=== PATIENT | male | born 1970 | race Caucasian/White ===

== ENCOUNTER 2020-05-05 14:39 | Emergency (ER) | payer MEDICARE, MEDICAID ==
[~2020-05-05] VITALS: Ht 175.3 cm; Wt 88.0 kg
[2020-05-05] MEDS ORDERED: SODIUM CHLORIDE 0.9% 1,000 ML IV ONE ×2 (15:05→16:30)
[2020-05-05] MEDS ORDERED: CEFTRIAXONE 1 G PREMIX 50 ML IV ONE (15:15)
[2020-05-05 15:51] LABS: BASOPHILS % 1.1 % (0.0-2.0); EOSINOPHILS % 7.2 % (0.0-5.0); HEMOGLOBIN. 9.7 g/dL (14.0-18.0); LYMPHOCYTES % 18.4 % (20.0-50.0); MEAN CORPUSCULAR HEMOGLOBIN 28.7 pg (28.0-32.0); MEAN CORPUSCULAR VOLUME 86.3 fL (80.0-94.0); MEAN PLATELET VOLUME 6.4 fl (7.4-10.4); MONOCYTES % 11.3 % (2.0-8.0); PLATELET 273 x1000/uL (130-400); RED BLOOD CELL COUNT 3.37 mill/uL (4.7-6.1); RED CELL DISTRIBUTION WIDTH 14.1 % (11.6-14.6)
[2020-05-05 15:54] LABS: CHLORIDE 104 mEq/L (98-107)
[2020-05-05 17:15] VITALS: BP 122/88
== END 2020-05-05 17:50 | disposition home or self-care (01) ==
LOC: ER 14:53
DX: I95.89 Other hypotension (principal); N30.90 Cystitis, unspecified without hematuria; G82.50 Quadriplegia, unspecified; Z74.01 Bed confinement status; Z98.890 Other specified postprocedural states
CPT/HCPCS: 36415; 80053; 83605; 85025; 87040; 93005; 96365; 99284; J0696; J7030

== ENCOUNTER 2020-10-23 19:46 | Inpatient (IN) | payer MEDICARE, MEDICAID ==
[~2020-10-23] VITALS: Ht 175.3 cm; Wt 90.7 kg
[2020-10-23] MEDS ORDERED: VANCOMYCIN 1 G PREMIX 200 ML IV ONE (20:45)
[2020-10-23] MEDS ORDERED: SODIUM CHLORIDE 0.9% 1000ML BAG (SEPSIS BOLUS) IV ONE (20:45)
[2020-10-23 21:07] LABS: HEMATOCRIT. 32.2 % (42.0-52.0); HEMOGLOBIN. 10.4 g/dL (14.0-18.0); MEAN CORPUSCULAR HEMOGLOBIN 27.5 pg (28.0-32.0); MEAN CORPUSCULAR VOLUME 85.2 fL (80.0-94.0); MEAN PLATELET VOLUME 6.6 fl (7.4-10.4); PLATELET 276 x1000/uL (130-400); RED BLOOD CELL COUNT 3.78 mill/uL (4.7-6.1); RED CELL DISTRIBUTION WIDTH 15.3 % (11.6-14.6)
[2020-10-23 21:12] LABS: CHLORIDE 105 mEq/L (98-107)
[2020-10-23 21:18] LABS: CLARITY URINE TURBID (CLEAR); COLOR URINE YELLOW (YELLOW); KETONES URINE NEGATIVE (NEGATIVE); LEUKOCYTE ESTERASE URINE 3+ (NEGATIVE); NITRITE URINE NEGATIVE (NEGATIVE); OCCULT BLOOD URINE TRACE (NEGATIVE); PROTEIN URINE 1+ (NEGATIVE); SPECIFIC GRAVITY URINE 1.012 (1.005-1.030)
[2020-10-23] MEDS ORDERED: PIPERACILLIN/TAZ 3.375G PREMIX 50 ML IV ONE (21:30)
[2020-10-23 21:47] LABS: PLATELET ESTIMATE NORMAL
[2020-10-23] MEDS ORDERED: GABAPENTIN SOLN 300MG/6ML UDC PO ONE (22:15)
[2020-10-23] MEDS: HYDROCODONE/ACETAMINOPHEN 5/325MG TABLET PO ONE ×2 (22:18→22:26)
[2020-10-24] VITALS (7 sets, daily range): BP systolic 100–175; BP diastolic 50–131
[2020-10-24] MEDS ORDERED: BISACODYL 5MG TABLET PO PRN (00:30)
[2020-10-24] MEDS ORDERED: SIMV-43 PO (00:33)
[2020-10-24] MEDS ORDERED: GABA800T97 PO (00:33)
[2020-10-24] MEDS ORDERED: LORA2ORA5 PO (00:33)
[2020-10-24] MEDS ORDERED: BISA-81 PO (00:33)
[2020-10-24] MEDS ORDERED: LEVO50TA8 PO (00:33)
[2020-10-24] MEDS ORDERED: BACL-141 PO (00:33)
[2020-10-24] MEDS: MORPHINE SULFATE 2 MG/ML CPJ (NOT FOR IM USE) IV PRN ×2 (01:17→05:16)
[2020-10-24] MEDS: LORAZEPAM 1MG TABLET PO PRN ×2 (01:27→22:19)
[2020-10-24] MEDS: ACETAMINOPHEN 325MG TABLET PO PRN (01:34)
[2020-10-24] MEDS ORDERED: VANCOMYCIN 1250MG in DEXTROSE 5% WATER 250ML IV SCH (05:00)
[2020-10-24] MEDS: BACLOFEN 10MG TABLET PO SCH ×3 (05:17→21:12)
[2020-10-24] MEDS: GABAPENTIN 300MG CAPSULE PO SCH ×4 (05:17→21:17)
[2020-10-24] MEDS ORDERED: PIPERACILLIN/TAZOBACTAM 3.375GM/50ML PREMIX IV SCH (06:00)
[2020-10-24] MEDS ORDERED: PIPERACILLIN/TAZOBACTAM 3.375 G in DEXT 5% WATER 100 ML IV SCH (06:00)
[2020-10-24 06:13] LABS: HEMOGLOBIN. 10.2 g/dL (14.0-18.0); MEAN CORPUSCULAR VOLUME 84.9 fL (80.0-94.0); MEAN PLATELET VOLUME 6.8 fl (7.4-10.4); PLATELET 256 x1000/uL (130-400); RED BLOOD CELL COUNT 3.65 mill/uL (4.7-6.1); RED CELL DISTRIBUTION WIDTH 15.1 % (11.6-14.6)
[2020-10-24 07:38] LABS: CHLORIDE 109 mEq/L (98-107)
[2020-10-24] MEDS ORDERED: HYDROCODONE/ACETAMINOPHEN 10/325MG TABLET PO PRN (08:15)
[2020-10-24] MEDS: LEVOTHYROXINE SODIUM 50MCG TABLET PO SCH (09:26)
[2020-10-24] MEDS: AMLODIPINE 10MG TABLET PO SCH (09:27)
[2020-10-24] MEDS: ENOXAPARIN 40MG/0.4ML SYR SUBCUT SCH (09:27)
[2020-10-24] MEDS: PIPERACILLIN/TAZOBACTAM 3.375 G in DEXT 5% WATER 100 ML IV SCH ×3 (12:00→22:20)
[2020-10-24 13:59] LABS: PLATELET ESTIMATE NORMAL
[2020-10-24] MEDS: HYDROCODONE/ACETAMINOPHEN 10/325MG TABLET PO PRN ×2 (15:18→22:53)
[2020-10-24] MEDS: DIPHENHYDRAMINE 25MG CAPSULE PO PRN (18:35)
[2020-10-24] MEDS ORDERED: ATORVASTATIN CALCIUM 20MG TABLET PO SCH (21:00)
[2020-10-25] VITALS: BP 97/56
[2020-10-25] MEDS: DIPHENHYDRAMINE 25MG CAPSULE PO PRN (00:58)
[2020-10-25] MEDS: ACETAMINOPHEN 325MG TABLET PO PRN (00:59)
[2020-10-25 04:00] VITALS: BP 128/76
[2020-10-25] MEDS: BACLOFEN 10MG TABLET PO SCH ×2 (06:08→14:20)
[2020-10-25] MEDS: HYDROCODONE/ACETAMINOPHEN 10/325MG TABLET PO PRN ×2 (06:11→10:13)
[2020-10-25] MEDS: LORAZEPAM 1MG TABLET PO PRN (06:34)
[2020-10-25 07:11] LABS: BASOPHILS % 0.5 % (0.0-2.0); HEMATOCRIT. 33.2 % (42.0-52.0); HEMOGLOBIN. 10.8 g/dL (14.0-18.0); LYMPHOCYTES % 9.4 % (20.0-50.0); MEAN CORPUSCULAR HEMOGLOBIN 27.5 pg (28.0-32.0); MEAN CORPUSCULAR VOLUME 84.6 fL (80.0-94.0); MEAN PLATELET VOLUME 6.8 fl (7.4-10.4); MONOCYTES % 6.5 % (2.0-8.0); NEUTROPHILS % 81.6 % (40.0-76.0); PLATELET 272 x1000/uL (130-400); RED BLOOD CELL COUNT 3.92 mill/uL (4.7-6.1); RED CELL DISTRIBUTION WIDTH 15.6 % (11.6-14.6)
[2020-10-25 07:17] LABS: CHLORIDE 110 mEq/L (98-107)
[2020-10-25 08:14] VITALS: BP 154/85
[2020-10-25] MEDS: LEVOTHYROXINE SODIUM 50MCG TABLET PO SCH (08:34)
[2020-10-25] MEDS: ENOXAPARIN 40MG/0.4ML SYR SUBCUT SCH (08:35)
[2020-10-25] MEDS: AMLODIPINE 10MG TABLET PO SCH (08:36)
[2020-10-25 12:11] VITALS: BP 129/70
[2020-10-25] MEDS ORDERED: MORPHINE SULFATE 2 MG/ML CPJ (NOT FOR IM USE) IV NR ×2 (12:45→13:00)
[2020-10-25] MEDS ORDERED: LEVO500T89 MT (13:15)
[2020-10-25] MEDS ORDERED: HYDR-4009 MT (13:15)
[2020-10-25] MEDS ORDERED: TRAMADOL 50MG TABLET PO PRN (14:00)
[2020-10-25] MEDS: GABAPENTIN 300MG CAPSULE PO SCH (14:20)
[2020-10-25] MEDS: PIPERACILLIN/TAZOBACTAM 3.375 G in DEXT 5% WATER 100 ML IV SCH (14:37)
[2020-10-25 16:00] VITALS: BP 126/78
[2020-10-25 16:04] VITALS: BP 126/78
== END 2020-10-25 17:45 | disposition home or self-care (01) | DRG 690 ==
LOC: ER 19:46 → EDBEDREQ 20:45 → 6WST 22:50 → EDBEDREQTM 22:56 → EDBEDREQ 22:56 → ENRESERV 23:30
PROVIDERS: ADMIT Internal Medicine; ATTEND Internal Medicine
DX: N39.0 Urinary tract infection, site not specified (principal); E87.1 Hypo-osmolality and hyponatremia; E44.0 Moderate protein-calorie malnutrition; E87.2 Acidosis; J98.11 Atelectasis; G82.20 Paraplegia, unspecified; E78.5 Hyperlipidemia, unspecified; E03.9 Hypothyroidism, unspecified; D64.9 Anemia, unspecified; I10 Essential (primary) hypertension; Z79.899 Other long term (current) drug therapy; Z74.01 Bed confinement status; Z88.1 Allergy status to other antibiotic agents; Z68.29 Body mass index [BMI] 29.0-29.9, adult
CPT/HCPCS: 36415; 71045; 80048; 80053; 81003; 83605; 84145; 84484; 85025; 93005; 96365; 99291; A4565; J1650; J2270; J2543; J3370; J7030; J7040; J7060; Q0163

== ENCOUNTER 2022-11-01 20:58 | Inpatient (IN) | payer MEDICARE, MEDICAID ==
[~2022-11-01] VITALS: Ht 175.3 cm; Wt 86.2 kg
[~2022-11-01 20:58] MED LIST: BACL-141 PO; BISA-81 PO; GABA800T97 PO; HYDR-4009 MT; LEVO-65 MT; LEVO50TA8 PO; LORA2ORA5 PO; SIMV-43 PO
[2022-11-01] MEDS ORDERED: SODIUM CHLORIDE 0.9% 1000ML BAG (SEPSIS BOLUS) IV ONE (21:45)
[2022-11-01 22:12] LABS: BASOPHILS % 0.9 % (0.0-2.0); EOSINOPHILS % 6.5 % (0.0-5.0); HEMOGLOBIN. 9.9 g/dL (14.0-18.0); LYMPHOCYTES % 27.5 % (20.0-50.0); MEAN CORPUSCULAR HEMOGLOBIN 27.6 pg (28.0-32.0); MEAN CORPUSCULAR VOLUME 83.5 fL (80.0-94.0); MEAN PLATELET VOLUME 6.9 fl (7.4-10.4); MONOCYTES % 6.9 % (2.0-8.0); NEUTROPHILS % 58.2 % (40.0-76.0); PLATELET 288 x1000/uL (130-400); RED BLOOD CELL COUNT 3.59 mill/uL (4.7-6.1); RED CELL DISTRIBUTION WIDTH 17.5 % (11.6-14.6)
[2022-11-01 22:16] LABS: CHLORIDE 108 mEq/L (98-107)
[2022-11-02] MEDS ORDERED: CEFTRIAXONE 1 G PREMIX 50 ML IV NR
[2022-11-02] MEDS ORDERED: MORPHINE SULFATE 4 MG/ML CPJ (NOT FOR IM USE) IV ONE
[2022-11-02 01:14] LABS: CLARITY URINE CLOUDY (CLEAR); COLOR URINE YELLOW (YELLOW); KETONES URINE NEGATIVE (NEGATIVE); LEUKOCYTE ESTERASE URINE 3+ (NEGATIVE); NITRITE URINE POSITIVE (NEGATIVE); OCCULT BLOOD URINE NEGATIVE (NEGATIVE); PROTEIN URINE TRACE (NEGATIVE); UROBILINOGEN URINE 0.2 E.U./dL (0.2-1.0)
[2022-11-02] MEDS ORDERED: ZOLPIDEM TARTRATE 5MG TABLET PO NR (03:30)
[2022-11-02] MEDS: HYDROCODONE/ACETAMINOPHEN 10/325MG TABLET PO PRN ×5 (04:00→20:29)
[2022-11-02 08:00] VITALS: BP 120/73
[2022-11-02] MEDS ORDERED: BACL-141 PO (08:46)
[2022-11-02] MEDS ORDERED: GABA800T97 PO (08:46)
[2022-11-02] MEDS ORDERED: LORA2ORA5 PO (08:46)
[2022-11-02] MEDS ORDERED: LEVO75TA7 PO (08:46)
[2022-11-02] MEDS ORDERED: SIMV10TA97 PO (08:46)
[2022-11-02] MEDS ORDERED: TRAM100T25 PO (08:46)
[2022-11-02] MEDS ORDERED: ACETAMINOPHEN 325MG TABLET PO PRN (09:30)
[2022-11-02] MEDS ORDERED: ONDANSETRON HCL 4MG/2ML INJ IV PRN (09:30)
[2022-11-02 11:48] VITALS: BP 120/73
[2022-11-02 12:00] VITALS: BP 132/73
[2022-11-02] MEDS: BACLOFEN 10MG TABLET PO SCH ×2 (13:43→21:12)
[2022-11-02] MEDS: GABAPENTIN 300MG CAPSULE PO SCH ×2 (13:43→21:12)
[2022-11-02 16:00] VITALS: BP 139/79
[2022-11-02] MEDS ORDERED: NALOXONE HCL 0.4MG/ML VIAL IV PRN (17:00)
[2022-11-02 20:00] VITALS: BP 156/91
[2022-11-02] MEDS ORDERED: ZOLPIDEM TARTRATE 5MG TABLET PO PRN (21:00)
[2022-11-02] MEDS ORDERED: CEFTRIAXONE 1,000 MG in DEXTROSE 5% WATER 50 ML IV SCH (22:00)
[2022-11-03] VITALS: BP 116/81
[2022-11-03] MEDS ORDERED: MORPHINE SULFATE 2 MG/ML CPJ (NOT FOR IM USE) IV NR
[2022-11-03 01:22] VITALS: BP 116/81
[2022-11-03 04:00] VITALS: BP 141/86
[2022-11-03] MEDS: HYDROCODONE/ACETAMINOPHEN 10/325MG TABLET PO PRN ×2 (04:24→09:24)
[2022-11-03] MEDS: GABAPENTIN 300MG CAPSULE PO SCH (06:04)
[2022-11-03] MEDS: BACLOFEN 10MG TABLET PO SCH (06:05)
[2022-11-03] MEDS ORDERED: LEVOTHYROXINE SODIUM 50MCG TABLET PO SCH (07:20)
[2022-11-03 08:00] VITALS: BP 143/86
[2022-11-03 09:24] VITALS: BP 128/78
== END 2022-11-03 12:03 | disposition left against medical advice (07) | DRG 73 ==
LOC: ER 20:58 → 6EST 11-02 01:42 → EDBEDREQTM 11-02 01:45 → EDBEDREQ 11-02 01:45 → EDBEDREQSVC 11-02 01:56 → ENRESERV 11-02 03:29
PROVIDERS: ADMIT Internal Medicine; ATTEND Internal Medicine
DX: G90.8 Other disorders of autonomic nervous system (principal); G82.50 Quadriplegia, unspecified; E44.1 Mild protein-calorie malnutrition; N39.0 Urinary tract infection, site not specified; R57.9 Shock, unspecified; D64.9 Anemia, unspecified; E03.9 Hypothyroidism, unspecified; E78.00 Pure hypercholesterolemia, unspecified; G89.29 Other chronic pain; Z53.29 Procedure and treatment not carried out because of patient's decision for other reasons; Z88.1 Allergy status to other antibiotic agents; Z68.28 Body mass index [BMI] 28.0-28.9, adult
CPT/HCPCS: 36415; 71045; 80053; 81003; 83605; 84443; 85025; 87186; 93005; 99285; A6261; J0696; J2270; J7030; J7060

== ENCOUNTER 2024-11-17 22:02 | Inpatient (IN) | payer MEDICARE, MEDICAID ==
[~2024-11-17] VITALS: Ht 327.7 cm; Wt 83.5 kg
[~2024-11-17 22:02] MED LIST changes: +LEVO75TA7 PO; +SIMV10TA97 PO; +TRAM100T25 PO
[2024-11-17] MEDS ORDERED: MIDODRINE HCL 5MG TABLET PO ONE (22:45)
[2024-11-17] MEDS: SODIUM CHLORIDE 0.9% 500 ML IV ONE (22:45)
[2024-11-17] MEDS: MIDODRINE HCL 5MG TABLET PO ONE (23:26)
[2024-11-17] MEDS: ONDANSETRON HCL 4MG/2ML INJ IV STA (23:27)
[2024-11-17 23:36] LABS: HEMATOCRIT. 33.2 % (42.0-52.0); HEMOGLOBIN. 10.9 g/dL (14.0-18.0); MEAN CORPUSCULAR HEMOGLOBIN 30.1 pg (28.0-32.0); MEAN CORPUSCULAR HGB CONC 32.7 g/dL (31.0-37.0); MEAN CORPUSCULAR VOLUME 92.2 fL (80.0-94.0); MEAN PLATELET VOLUME 7.2 fl (7.4-10.4); PLATELET 177 x1000/uL (130-400); RED CELL DISTRIBUTION WIDTH 14.2 % (11.6-14.6); WHITE BLOOD COUNT 11.1 x1000/uL (4.5-11.0)
[2024-11-17 23:41] LABS: CHLORIDE 90 mEq/L (98-107); POTASSIUM 3.6 mEq/L (3.5-5.1); SODIUM 121 mEq/L (136-145)
[2024-11-17 23:42] LABS: CALCIUM 7.7 mg/dL (8.7-10.4); CARBON DIOXIDE 17 mEq/L (21-32); DIFFERENTIAL COMMENT 1
[2024-11-17 23:43] LABS: INR 1.2; PROTHROMBIN TIME 12.5 sec (9.6-11.0)
[2024-11-17 23:47] LABS: CREATININE 1.9 mg/dL (0.6-1.3); GLUCOSE 126 mg/dL (70-105)
[2024-11-17 23:48] LABS: TROPONIN I HIGH SENSITIVITY 4 ng/L (3.0-53); UREA NITROGEN BLOOD 28 mg/dL (9-23)
[2024-11-17 23:49] LABS: ALANINE AMINOTRANSFERASE 17 IU/L (10-49); ALBUMIN 3.3 g/dL (3.2-4.8); ASPARTATE AMINOTRANSFERASE 37 IU/L (<34); BILIRUBIN DIRECT 0.1 mg/dL (<=3.0)
[2024-11-17 23:50] LABS: BILIRUBIN TOTAL 0.2 mg/dL (0.1-1.0); PROTEIN TOTAL 6.4 g/dL (6.0-8.3)
[2024-11-17 23:55] LABS: ETHANOL BLOOD < 10 mg/dL (<10)
[2024-11-18] VITALS (65 sets, daily range): BP systolic 62–167; BP diastolic 34–151; PULSE 75–99; RESP 0–36; TEMP 36.1–37.4; O2SAT 91–99
[2024-11-18 00:02] LABS: LACTIC ACID 2.4 mmol/L (0.4-2.0)
[2024-11-18] MEDS: SODIUM CHLORIDE 0.9% 500 ML IV ONE (00:15)
[2024-11-18] MEDS: VANCOMYCIN 1.5GM PMX (XELLIA) 300 ML IV NR (00:15)
[2024-11-18] MEDS: AZTREONAM 1 G in DEXTROSE 5% WATER 50 ML IV SCH (00:40)
[2024-11-18] MEDS ORDERED: NOREPINEPHRINE 8 MG in DEXT 5% WATER 242 ML IV PRN (00:45)
[2024-11-18] MEDS: NOREPINEPHRINE 8MG/250ML PMX 250 ML IV PRN (01:07)
[2024-11-18] MEDS: SODIUM CHLORIDE 0.9% 1,000 ML IV ONE ×2 (01:10→11:15)
[2024-11-18] MEDS ORDERED: PHENYLEPHRINE 100 MG in DEXT 5% WATER 240 ML IV PRN (02:45)
[2024-11-18] MEDS ORDERED: IPRATROPIUM/ALBUTEROL 0.5-3(2.5)MG/3ML NEB NEB PRN (02:45)
[2024-11-18] MEDS ORDERED: ONDANSETRON HCL 4MG/2ML INJ IV PRN (02:45)
[2024-11-18] MEDS ORDERED: GLUCAGON,HUMAN RECOMBINANT 1MG/VIAL IV PRN (03:15)
[2024-11-18] MEDS ORDERED: DOCUSATE SODIUM 100MG CAPSULE PO PRN (03:15)
[2024-11-18] MEDS ORDERED: GUAIFENESIN 200MG/10ML SUGAR FREE UDC PO PRN (03:15)
[2024-11-18] MEDS ORDERED: CLONIDINE 0.1MG TABLET PO PRN (03:15)
[2024-11-18 03:26] LABS: CLARITY URINE TURBID (CLEAR); COLOR URINE YELLOW (YELLOW); GLUCOSE URINE NEGATIVE (NEGATIVE); KETONES URINE NEGATIVE (NEGATIVE); LEUKOCYTE ESTERASE URINE 3+ (NEGATIVE); NITRITE URINE NEGATIVE (NEGATIVE); OCCULT BLOOD URINE 1+ (NEGATIVE); PROTEIN URINE 2+ (NEGATIVE); UROBILINOGEN URINE 0.2 E.U./dL (0.2-1.0)
[2024-11-18 03:44] LABS: *AMPHETAMINES SCREEN URINE NEGATIVE (NEGATIVE); *BARBITURATES SCREEN URINE NEGATIVE (NEGATIVE); *BENZODIAZEPINES SCREEN URINE PRESUMPTIVE POSITIVE (NEGATIVE); *COCAINE SCREEN URINE NEGATIVE (NEGATIVE); METHADONE URINE SCREEN NEGATIVE (NEGATIVE); OPIATES URINE SCREEN NEGATIVE (NEGATIVE)
[2024-11-18 03:45] LABS: CANNABINOID URINE SCREEN NEGATIVE (NEGATIVE); ECSTASY MDMA SCREEN URINE NEGATIVE (NEGATIVE); PHENCYCLIDINE URINE SCREEN NEGATIVE (NEGATIVE)
[2024-11-18 03:56] LABS: PLATELET ESTIMATE NORMAL
[2024-11-18] MEDS: PHENYLEPHRINE 100 MG in DEXT 5% WATER 240 ML IV PRN (04:56)
[2024-11-18 04:59] LABS: WBC URINE 15-25 /hpf (0-2)
[2024-11-18 05:00] LABS: RBC URINE 0-2 /hpf (0-2)
[2024-11-18 05:01] LABS: BACTERIA URINE 3+; SQUAMOUS EPITHELIAL CELL URINE FEW /lpf (RARE/1+)
[2024-11-18] MEDS ORDERED: BACLOFEN 20MG TABLET PO SCH ×2 (06:00→22:00)
[2024-11-18] MEDS ORDERED: BACLOFEN 10MG TABLET PO SCH (06:36)
[2024-11-18 10:06] LABS: HEMATOCRIT. 34.9 % (42.0-52.0); HEMOGLOBIN. 11.7 g/dL (14.0-18.0); MEAN CORPUSCULAR HGB CONC 33.6 g/dL (31.0-37.0); MEAN CORPUSCULAR VOLUME 89.2 fL (80.0-94.0); MEAN PLATELET VOLUME 7.2 fl (7.4-10.4); PLATELET 173 x1000/uL (130-400); RED BLOOD CELL COUNT 3.91 mill/uL (4.7-6.1); RED CELL DISTRIBUTION WIDTH 14.2 % (11.6-14.6); WHITE BLOOD COUNT 16.2 x1000/uL (4.5-11.0)
[2024-11-18 10:07] LABS: DIFFERENTIAL COMMENT 1
[2024-11-18 10:27] LABS: AMMONIA < 17 uMol/L (<32)
[2024-11-18] MEDS: MIDODRINE HCL 5MG TABLET PO SCH (10:31)
[2024-11-18] MEDS: GABAPENTIN 400MG CAPSULE PO SCH (10:32)
[2024-11-18] MEDS: LEVOTHYROXINE SODIUM 75MCG TABLET PO SCH (10:32)
[2024-11-18] MEDS: PANTOPRAZOLE SODIUM 40 MG/VIAL IV SCH (10:33)
[2024-11-18] MEDS: DEXT 5%/0.9% NACL 1,000 ML IV SCH (10:33)
[2024-11-18] MEDS: ENOXAPARIN 40MG/0.4ML SYR SUBCUT SCH ×2 (10:33→12:45)
[2024-11-18 10:57] LABS: CARBON DIOXIDE 17 mEq/L (21-32); CHLORIDE 96 mEq/L (98-107); POTASSIUM 3.2 mEq/L (3.5-5.1); SODIUM 128 mEq/L (136-145)
[2024-11-18 11:02] LABS: CREATININE 1.6 mg/dL (0.6-1.3); GLUCOSE 83 mg/dL (70-105)
[2024-11-18 11:03] LABS: LDL CHOLESTEROL 16 mg/dL (5-100); TRIGLYCERIDE 220 mg/dL (0-150); UREA NITROGEN BLOOD 25 mg/dL (9-23)
[2024-11-18 11:04] LABS: CHOLESTEROL 76 mg/dL (<200); HDL CHOLESTEROL < 20 mg/dL (>55)
[2024-11-18 11:05] LABS: PHOSPHORUS 2.9 mg/dL (2.5-4.9)
[2024-11-18 11:08] LABS: T4 FREE 1.22 ng/dL (0.89-1.76)
[2024-11-18 11:09] LABS: THYROID STIMULATING HORMONE 1.26 uIU/mL (0.55-4.78)
[2024-11-18] MEDS ORDERED: POTASSIUM CHLORIDE 40 MEQ in DEXT 5% WATER 230 ML IV ONE (11:15)
[2024-11-18 12:58] LABS: PLATELET ESTIMATE NORMAL
[2024-11-18] MEDS: TRAMADOL 50MG TABLET PO NR (13:17)
[2024-11-18] MEDS: KCL 20MEQ/100ML X 2 FOR TOTAL KCL 40MEQ/200ML IV SCH (13:50)
[2024-11-18] MEDS ORDERED: PIPERACILLIN/TAZO 3.375G/50ML 50 ML IV SCH (14:00)
[2024-11-18] MEDS: KETOROLAC 15MG/ML VIAL IV NR (14:11)
[2024-11-18 16:09] LABS: CREATINE KINASE MB FRACTION 25.1 ng/mL (0.5-3.6)
[2024-11-18] MEDS: MAGNESIUM 4 G PREMIX 100 ML IV NR (17:02)
[2024-11-18] MEDS: METRONIDAZOLE 500 MG PREMIX 100 ML IV SCH (18:54)
[2024-11-18] MEDS: VANCOMYCIN 1.25GM/250ML IV SCH (20:12)
[2024-11-18] MEDS: MEROPENEM 1G/100ML 100 ML IV SCH (20:12)
[2024-11-18] MEDS: ACETAMINOPHEN 325MG TABLET PO PRN (20:12)
[2024-11-18] MEDS: LIDOCAINE 5% PATCH TOP NR (20:40)
[2024-11-18] MEDS ORDERED: ENOXAPARIN 100MG/ML SYR SUBCUT SCH (21:00)
[2024-11-18] MEDS ORDERED: ENOXAPARIN 80MG/0.8ML SYR SUBCUT SCH (21:00)
[2024-11-18] MEDS: TRAMADOL 50MG TABLET PO PRN (21:44)
[2024-11-18] MEDS ORDERED: NALOXONE HCL 0.4MG/ML VIAL IV PRN (21:45)
[2024-11-18] MEDS: HYDROCORTISONE SOD SUCCINATE 100 MG/2 ML VIAL IV SCH (21:45)
[2024-11-18] MEDS: BACLOFEN 10MG TABLET PO SCH (22:46)
[2024-11-19] VITALS (80 sets, daily range): BP systolic 51–158; BP diastolic 35–139; PULSE 47–100; RESP 8–27; TEMP 36.6–37.7; O2SAT 89–98
[2024-11-19] MEDS: TRAMADOL 50MG TABLET PO PRN (02:01)
[2024-11-19] MEDS: METOCLOPRAMIDE HCL 10MG/2ML VIAL IV PRN (02:43)
[2024-11-19 05:24] LABS: HEMATOCRIT. 35.7 % (42.0-52.0); HEMOGLOBIN. 11.5 g/dL (14.0-18.0); MEAN CORPUSCULAR HEMOGLOBIN 29.3 pg (28.0-32.0); MEAN CORPUSCULAR HGB CONC 32.3 g/dL (31.0-37.0); MEAN CORPUSCULAR VOLUME 90.7 fL (80.0-94.0); MEAN PLATELET VOLUME 7.6 fl (7.4-10.4); PLATELET 183 x1000/uL (130-400); RED BLOOD CELL COUNT 3.94 mill/uL (4.7-6.1); WHITE BLOOD COUNT 26.8 x1000/uL (4.5-11.0)
[2024-11-19 05:32] LABS: DIFFERENTIAL COMMENT 1
[2024-11-19 05:53] LABS: POTASSIUM 3.5 mEq/L (3.5-5.1)
[2024-11-19 05:54] LABS: CALCIUM 8.2 mg/dL (8.7-10.4)
[2024-11-19 05:59] LABS: CREATININE 1.3 mg/dL (0.6-1.3)
[2024-11-19] MEDS ORDERED: LACTULOSE 20G/30ML UDC PO NR (07:45)
[2024-11-19] MEDS ORDERED: DEXTROSE 50% WATER 50ML SYRINGE IV PRN (08:30)
[2024-11-19] MEDS: SODIUM CHLORIDE 0.9% 1,000 ML IV SCH (08:30)
[2024-11-19] MEDS: ENOXAPARIN 40MG/0.4ML SYR SUBCUT SCH (09:49)
[2024-11-19] MEDS: KETOROLAC 15MG/ML VIAL IV PRN (09:50)
[2024-11-19] MEDS ORDERED: LIDOCAINE HCL 1% 10 MG/ML 10ML VIAL ONE (10:08)
[2024-11-19] MEDS: BLOOD SUGAR DIAGNOSTIC STRIP TEST SCH (11:30)
[2024-11-19] MEDS: INSULIN LISPRO 100 UNITS/ML SUBCUT SCH (12:00)
[2024-11-19 18:37] LABS: ANISOCYTOSIS 1+; PLATELET ESTIMATE NORMAL
[2024-11-19] MEDS: DOCUSATE SODIUM 100MG CAPSULE PO SCH (21:00)
[2024-11-19] MEDS ORDERED: ATROPINE SULFATE 1MG/10ML SYR IV PRN (21:00)
[2024-11-19] MEDS: PANTOPRAZOLE SODIUM 40 MG/VIAL IV SCH (21:32)
[2024-11-20] VITALS (75 sets, daily range): BP systolic 82–158; BP diastolic 6–116; PULSE 47–92; RESP 8–26; TEMP 36.6–36.7; O2SAT 55–100
[2024-11-20 07:19] LABS: HEMATOCRIT 31.5 % (42.0-52.0); HEMOGLOBIN 10.3 g/dL (14.0-18.0); MEAN CORPUSCULAR HEMOGLOBIN 29.6 pg (28.0-32.0); MEAN CORPUSCULAR HGB CONC 32.7 g/dL (31.0-37.0); MEAN CORPUSCULAR VOLUME 90.4 fL (80.0-94.0); PLATELET 136 x1000/uL (130-400); RED BLOOD CELL COUNT 3.49 mill/uL (4.7-6.1); RED CELL DISTRIBUTION WIDTH 15.2 % (11.6-14.6); WHITE BLOOD COUNT 28.2 x1000/uL (4.5-11.0)
[2024-11-20 07:35] LABS: CALCIUM 8.6 mg/dL (8.7-10.4)
[2024-11-20 07:39] LABS: CREATININE 1.3 mg/dL (0.6-1.3)
[2024-11-20] MEDS: DIPHENHYDRAMINE 50MG/ML VIAL IV PRN (07:55)
[2024-11-20 09:06] LABS: BG BASE EXCESS -9.8 mmol/L (-2.0-3.0); BG CARBOXYHEMOGLOBIN 0.2 % (0.5-1.5); BG FRACTION INSPIRED OXYGEN 21; BG HCO3 ACT 15.8 mmol/L (21.0-28.0); BG METHEMOGLOBIN 0.3 % (0.5-1.5); BG OXYHEMOGLOBIN 97.5 % (94.0-98.0); BG PCO2 33.7 mmHg (35.0-48.0); BG PO2 105.3 mmHg (83.0-108.0); BG SAMPLE SITE RIGHT RADIAL; BG TOTAL HEMOGLOBIN 11.1 g/dL (13.5-17.5); BG VENT MODE ROOM AIR
[2024-11-20 09:51] LABS: PHOSPHORUS 1.7 mg/dL (2.5-4.9)
[2024-11-20] MEDS: POTASSIUM CHLORIDE 20MEQ TABLET SR PO NR (11:32)
[2024-11-20] MEDS: KCL 20MEQ/100ML PREMIX 100 ML IV NR (11:33)
[2024-11-20] MEDS: MAGNESIUM 2 G PREMIX 50 ML IV NR (12:15)
[2024-11-20] MEDS: METHYLPREDNISOLONE SOD SUCC 40MG/ML (ACT-O-VIAL) IV NR (14:37)
[2024-11-20] MEDS: DIPHENHYDRAMINE 50MG/ML VIAL IV NR (14:37)
[2024-11-20] MEDS: POTASSIUM PHOSPHATE 15 MMOL in DEXT 5% WATER 245 ML IV NR (14:38)
[2024-11-20] MEDS: MAGNESIUM HYDROXIDE 400MG/5ML 30ML UDC PO PRN (16:50)
[2024-11-20] MEDS: BACLOFEN 10MG TABLET PO SCH (18:21)
[2024-11-20] MEDS: HYDROCODONE/ACETAMINOPHEN 5/325MG TABLET PO PRN (20:09)
[2024-11-20] MEDS ORDERED: HYDROCORTISONE SOD SUCCINATE 100 MG/2 ML VIAL IV SCH (21:00)
[2024-11-20] MEDS: IBUPROFEN 200MG TABLET PO PRN (22:11)
[2024-11-20] MEDS: LIDOCAINE 5% PATCH TOP SCH (22:12)
[2024-11-21] VITALS (62 sets, daily range): BP systolic 50–164; BP diastolic 31–134; PULSE 38–71; RESP 10–21; TEMP 36–36.9; O2SAT 97–100
[2024-11-21] MEDS: HYDROCODONE/ACETAMINOPHEN 10/325MG TABLET PO PRN (00:02)
[2024-11-21] MEDS: KETOROLAC 15MG/ML VIAL IV NR (02:21)
[2024-11-21] MEDS: LORAZEPAM 2MG/ML UD SYRINGE IV NR (03:18)
[2024-11-21] MEDS ORDERED: LORAZEPAM 1MG TABLET PO PRN (03:45)
[2024-11-21] MEDS: VANCOMYCIN 1GM/200ML PMX (BAXTER) IV SCH (09:52)
[2024-11-21] MEDS ORDERED: CEPH500T MT (10:41)
[2024-11-21] MEDS ORDERED: MIDO5TAB4 PO (10:41)
[2024-11-21] MEDS ORDERED: IBUP-2741 PO (11:24)
[2024-11-21 12:05] LABS: HEMATOCRIT. 34.6 % (42.0-52.0); HEMOGLOBIN. 11.1 g/dL (14.0-18.0); MEAN CORPUSCULAR VOLUME 90.8 fL (80.0-94.0); MEAN PLATELET VOLUME 7.9 fl (7.4-10.4); PLATELET 116 x1000/uL (130-400); RED BLOOD CELL COUNT 3.81 mill/uL (4.7-6.1); RED CELL DISTRIBUTION WIDTH 15.7 % (11.6-14.6); WHITE BLOOD COUNT 18.7 x1000/uL (4.5-11.0)
[2024-11-21 12:10] LABS: DIFFERENTIAL COMMENT 1
[2024-11-21] MEDS: MIDODRINE HCL 5MG TABLET PO SCH (12:13)
[2024-11-21 12:15] LABS: CHLORIDE 112 mEq/L (98-107); POTASSIUM 3.5 mEq/L (3.5-5.1); SODIUM 140 mEq/L (136-145)
[2024-11-21 12:16] LABS: CALCIUM 8.6 mg/dL (8.7-10.4); CARBON DIOXIDE 17 mEq/L (21-32)
[2024-11-21 12:21] LABS: CREATININE 1.1 mg/dL (0.6-1.3); GLUCOSE 140 mg/dL (70-105); UREA NITROGEN BLOOD 30 mg/dL (9-23)
[2024-11-21 12:23] LABS: PHOSPHORUS 1.7 mg/dL (2.5-4.9)
[2024-11-21 13:00] LABS: ANISOCYTOSIS 1+; MICROCYTOSIS 21; SMUDGE CELLS ND
[2024-11-21] MEDS: POTASSIUM PHOSPHATE 20 MMOL in DEXT 5% WATER 243.3333 ML IV NR (13:57)
[2024-11-21 15:15] LABS: PLATELET ESTIMATE SLIGHTLY DECREASED
[2024-11-21] MEDS ORDERED: IBUPROFEN 600MG TABLET PO NR (16:15)
[2024-11-21] MEDS: IBUPROFEN 200MG TABLET PO NR (16:33)
[2024-11-21] MEDS: TRAMADOL 50MG TABLET PO NR (16:34)
[2024-11-28] MEDS ORDERED: KEPP500 MT (10:30)
[2024-11-28] MEDS ORDERED: QUET25TA PO (10:30)
== END 2024-11-21 22:45 | disposition home or self-care (01) | DRG 871 ==
LOC: ER 22:02 → EDBEDREQTM 11-18 00:14 → EDBEDREQ 11-18 00:14 → EDBEDREQSVC 11-18 00:14 → EDBEDREQDT 11-18 00:14 → MICUSO 11-18 00:33 → EDBEDREQSVC 11-18 00:38 → EDBEDREQTM 11-18 00:38
PROVIDERS: ADMIT Internal Medicine; ATTEND Internal Medicine
PROC: 02H633Z Insertion of Infusion Device into Right Atrium, Percutaneous Approach (ICD-10-PCS; principal; 2024-11-19)
PROC: B548ZZA Ultrasonography of Superior Vena Cava, Guidance (ICD-10-PCS; 2024-11-19)
DX: A41.9 Sepsis, unspecified organism (principal); G82.50 Quadriplegia, unspecified; L89.153 Pressure ulcer of sacral region, stage 3; I21.A1 Myocardial infarction type 2; R65.21 Severe sepsis with septic shock; J96.01 Acute respiratory failure with hypoxia; G93.41 Metabolic encephalopathy; E87.1 Hypo-osmolality and hyponatremia; E87.20 Acidosis, unspecified; N17.9 Acute kidney failure, unspecified; D50.9 Iron deficiency anemia, unspecified; D72.820 Lymphocytosis (symptomatic); E03.9 Hypothyroidism, unspecified; E78.00 Pure hypercholesterolemia, unspecified; E83.39 Other disorders of phosphorus metabolism; E83.42 Hypomagnesemia; E83.51 Hypocalcemia; E86.0 Dehydration; G35 Multiple sclerosis; R73.9 Hyperglycemia, unspecified; G89.29 Other chronic pain; M54.9 Dorsalgia, unspecified; J44.9 Chronic obstructive pulmonary disease, unspecified; N18.9 Chronic kidney disease, unspecified; N50.89 Other specified disorders of the male genital organs; Z87.440 Personal history of urinary (tract) infections; Z88.1 Allergy status to other antibiotic agents; Z93.6 Other artificial openings of urinary tract status; Z99.3 Dependence on wheelchair
CPT/HCPCS: 36415; 36573; 36600; 71045; 74176; 80048; 80061; 80076; 80202; 80305; 80320; 81003; 82140; 82375; 82533; 82550; 82553; 82805; 82962; 83036; 83605; 83735; 83880; 83930; 84100; 84145; 84439; 84443; 84484; 85025; 85027; 87077; 87186; 93005; 93306; 93970; 99291; A4606; A6261; C1725; J1200; J1650; J1720; J1815; J1885; J2003; J2060; J2185; J2371; J2405; J2470; J2543; J2765; J2920; J3370; J3475; J3480; J3490; J7030; J7040; J7042; J7060; G0480